=== PATIENT | male | born 1940 | race Caucasian/White ===

== ENCOUNTER 2019-03-21 08:57 | Day surgery (SDC) | payer OTHER ==
[2019-03-20 12:40] VITALS: BMI 30.4
[2019-03-21] MEDS ORDERED: PROPOFOL 20 ML ONE ×2 (09:53)
[2019-03-21] MEDS ORDERED: SUCCINYLCHOLINE CHLORIDE 200 MG/10 ML SYRINGE ONE (09:54)
[2019-03-21] MEDS ORDERED: BUPIVACAINE HCL/PF 2.5 MG/ML - 30 ML VIAL IJ ONE (10:13)
[2019-03-21] MEDS ORDERED: ceFAZolin SODIUM 1 GM VIAL ONE (10:26)
[2019-03-21] MEDS ORDERED: KETOROLAC TROMETHAMINE 30 MG/1 ML VIAL ONE (10:26)
[2019-03-21] MEDS ORDERED: LIDOCAINE HCL/PF 2% SDV 5ML VIAL ONE (10:26)
[2019-03-21] MEDS ORDERED: LIDOCAINE HCL 2% JELLY (5 ML/TUBE) ONE (10:26)
[2019-03-21] MEDS ORDERED: ONDANSETRON 4 MG/2 ML VIAL ONE (10:26)
[2019-03-21] MEDS ORDERED: DEXAMETHASONE SOD PHOSPHATE 4 MG/1 ML VIAL ONE (10:26)
[2019-03-21] MEDS ORDERED: BUPIVACAINE HCL/PF 0.25% (2.5MG/ML) 10 ML VIAL IJ ONE (11:13)
--- NOTE | 2019-03-21 11:59 | OP ---
DATE OF OPERATION: 03/21/2019 Done at [facility] SURGEON: Shelly Grijalva MD TEST ENGINEERING INTERN: MELCHOR Fine PREOPERATIVE DIAGNOSIS: Right distal biceps tear, right elbow. POSTOPERATIVE DIAGNOSIS: Right distal biceps tear, right elbow. PROCEDURE: Repair of ruptured biceps tendon with reinsertion. FINDINGS: Avulsed biceps tendon from the radial neck/tuberosity. DESCRIPTION OF PROCEDURE: Informed consent was obtained. Patient was taken to the operating room where the right upper extremity was prepped and draped in sterile fashion. Tourniquet was placed to the upper arm and inflated to 250 mmHg. Horizontal incision was made 2 cm distal to the elbow crease. Biceps tendon was identified through the fascia, and scar tissue was removed. Interlocking [place] stitch using No. 2 FiberWire was placed with 2 locking stitches placed, 1 on the medial, 1 on the lateral. This was then interlocked with the toggle lock device. Soft tissue was removed from the insertion site, and the radial neck/tuberosity was identified. Arm was fully supinated. The toggle lock system was used using alternating drill starting with a 7 mm outer. Toggle lock was placed into place. The tendon was inserted into the bleeding bone and secured in place. The wound was irrigated with a copious amounts of irrigation. Tourniquet was released. There was no evidence of active bleeding. Layered closure of 2-0 Vicryl and 3-0 Prolene was performed. Sterile dressing was placed. A splint was placed. Patient transferred to recovery without complication. The PA listed above was present and assisted at surgery. Their presence was absolutely medically necessary for the completion of the procedure. They helped hold the arthroscopy, pass instruments (and implants when indicated) and the procedure could not have been completed without their assistance. SHELLY GRIJALVA M.D. [id number]
[2019-03-21] MEDS ORDERED: ACETAMINOPHEN 500 MG TABLET (FP) PO ONE ×2 (12:00→12:54)
[2019-03-21] MEDS ORDERED: ACETAMINOPHEN 500 MG TABLET (FP) ONE (12:11)
[2019-03-21] MEDS ORDERED: ONDANSETRON 4 MG/2 ML VIAL IVPUSH PRN (12:37)
[2019-03-21] MEDS ORDERED: PROMETHAZINE HCL 25 MG/1 ML VIAL IVPUSH PRN (12:37)
[2019-03-21] MEDS ORDERED: oxyCODONE HCL 5 MG TABLET PO PRN ×2 (12:37)
[2019-03-21 13:41] VITALS: BP 147/80; PULSE 69; TEMP 98.5
== END 2019-03-21 13:41 | disposition home or self-care (01) ==
LOC: FASU 08:57
PROVIDERS: ATTEND Orthopaedic Surgery
PROC: 0LM30ZZ Reattachment of Right Upper Arm Tendon, Open Approach (ICD-10-PCS; principal; 2019-03-21 10:43)
DX: S46.211A Strain of muscle, fascia and tendon of other parts of biceps, right arm, initial encounter (principal); X58.XXXA Exposure to other specified factors, initial encounter; Y93.9 Activity, unspecified; Y92.9 Unspecified place or not applicable
CPT/HCPCS: 94760